=== PATIENT | male | born 1965 | race American Indian/Alaskan Native ===

== ENCOUNTER 2016-07-07 12:34 | Emergency (ER) | payer MEDICARE, MEDICAID ==
[2016-07-07 13:06] VITALS: BP 147/94; PULSE 72; RESP 18; TEMP 97.4; O2SAT 100
--- NOTE | 2016-07-07 13:14 | ED PDOC ---
HPI: General Adult Time Seen by Provider: 07/07/16 13:03 Chief Complaint (Provider): Sinus pain History Per: Patient History/Exam Limitations: no limitations Onset/Duration Of Symptoms: Days (4) Have you had recent travel within the past 21 days to any of the following countries: [place], [place], [place] or [place]?: No Current Symptoms Are (Timing): Still Present Severity: Moderate Additional History Per: Patient Additional Complaint(s): The pt is a 50yo male with no pertinent PMHx, presents to the ED for evaluation of sinus pain and congestion for the past 4 days. Pt additionally reports increased tearing in his eyes, more in left than right and thick congestion in his sinuses. Pt notes sinus pain with bending his neck forward and some pain in his eyes. He denies any fever, trauma, and offers no additional medical complaints. Past Medical History Reviewed: Historical Data, Nursing Documentation, Vital Signs Vital Signs: Last Vital Signs Temp 97.4 F L 07/07/16 13:04 Pulse 72 07/07/16 13:04 Resp 18 07/07/16 13:04 BP 147/94 H 07/07/16 13:04 Pulse Ox 100 07/07/16 13:17 - Medical History PMH: Asthma, HTN - Family History Family History: States: Unknown Family Hx - Immunization History Hx Tetanus Toxoid Vaccination: No Hx Influenza Vaccination: No Hx Pneumococcal Vaccination: No - Home Medications Home Medications: Ambulatory Orders Medication Instructions Recorded Guaifenesin/Pseudoephedrne HCl 1 ter PO Q12H PRN #10 ter 08/05/15 [Mucinex D 600 mg-60 mg] Lidocaine 2% Viscous 10 ml MM Q4H PRN #1 bottle 08/05/15 Amoxicillin/Clavulanate [Augmentin 1 tab PO BID #20 tab 07/07/16 500 MG-125 MG] Erythromycin 0.5% [Erythromycin 1 appl LEFTEYE QID #3 tube 07/07/16 0.5% Oint] Fluticasone Propionate [Flonase] 2 spr NS DAILY PRN #1 bottle 07/07/16 Pseudoephedrine [Sudafed Tab] 60 mg PO Q8 PRN #30 tab 07/07/16 - Allergies Allergies/Adverse Reactions: Allergies Allergy/AdvReac Type Severity Reaction Status Date / Time seafood Allergy Mild RASH Uncoded 08/05/15 08:22 Review of Systems ROS Statement: Except As Marked, All Systems Reviewed And Found Negative Constitutional: Negative for: Fever ENT: Positive for: Ear Discharge, Nose Congestion. Negative for: Other (trauma) Physical Exam - Reviewed Nursing Documentation Reviewed: Yes Vital Signs Reviewed: Yes - Physical Exam Appears: Positive for: Well, Non-toxic, No Acute Distress Head Exam: Positive for: ATRAUMATIC, NORMAL INSPECTION, NORMOCEPHALIC Skin: Positive for: Normal Color, Warm, Dry Eye Exam: Positive for: EOMI, PERRL. Negative for: Periorbital swelling, Conjunctival injection, Other (yellow discharge noted in left eye) ENT: Positive for: Sinus Pain/Drainage (bilateral), Nasal Congestion Neck: Positive for: Normal, Supple Neurologic/Psych: Positive for: Alert, Oriented - ECG O2 Sat by Pulse Oximetry: 100 (RA) Pulse Ox Interpretation: Normal Medical Decision Making Medical Decision Making: Time: 1310 Impression: Sinus pain Plan: -- based on clinical presentation, pt stable for d/c home. Will give Rx decongestants and advised to f/u with PCP in 1-2 days. Scribe Attestation: All records were documented by Matilde García, acting as a Scribe for VLADIMIR Gregory. Provider Scribe Attestation: All medical record entries made by the Scribe were at my direction and personally dictated by me. I have reviewed the chart and agree that the record accurately reflects my personal performance of the history, physical exam, medical decision making, and the department course for this patient. I have also personally directed, reviewed, and agree with the discharge instructions and disposition. Disposition - Clinical Impression Clinical Impression: Acute sinusitis - Patient ED Disposition Is Patient to be Admitted: No - Disposition Referrals: Carol Burns MD [Primary Care Provider] - Disposition: Routine/Home Disposition Time: 13:10 Condition: GOOD Prescriptions: Amoxicillin/Clavulanate [Augmentin 500 MG-125 MG] 1 tab PO BID #20 tab Erythromycin 0.5% [Erythromycin 0.5% Oint] 1 appl LEFTEYE QID #3 tube Fluticasone Propionate [Flonase] 2 spr NS DAILY PRN #1 bottle PRN Reason: Allergy Symptoms Pseudoephedrine [Sudafed Tab] 60 mg PO Q8 PRN #30 tab PRN Reason: congestion Instructions: Sinusitis (ED) Print Language: MALAY
== END 2016-07-07 13:25 | disposition home or self-care (01) ==
LOC: H.ER 12:34
DX: J01.90 Acute sinusitis, unspecified (principal); F17.210 Nicotine dependence, cigarettes, uncomplicated

== ENCOUNTER 2017-01-22 08:53 | Emergency (ER) | payer MEDICARE, MEDICAID ==
[2017-01-22 09:01] VITALS: BP 143/87; PULSE 98; RESP 20; TEMP 97.9; O2SAT 100; BMI 29.9
--- NOTE | 2017-01-22 09:23 | ED PDOC ---
HPI: CCC, URI, Sore Throat Time Seen by Provider: 01/22/17 09:13 Chief Complaint (Provider): Sore throat & nasal congestion History Per: Patient History/Exam Limitations: no limitations Onset/Duration Of Symptoms: Days (x1 week) Current Symptoms Are (Timing): Still Present Location Of Pain: Throat Associated Symptoms: Sore Throat, Nasal Congestion. denies: Fever, Cough, Other (SOB) Ear Symptoms: Bilateral: None Additional Complaint(s): Abelardo Lopez is a 51 year old male, with a past medical history of asthma, who presents to the emergency department complaining of sore throat and nasal congestion onset for 2 days. Patient denies any cough, fever, or shortness of breath. No further medical complaints. PMD: None provided. Past Medical History Reviewed: Historical Data, Nursing Documentation, Vital Signs Vital Signs: Last Vital Signs Temp 97.9 F 01/22/17 09:00 Pulse 98 H 01/22/17 09:00 Resp 20 01/22/17 09:00 BP 143/87 01/22/17 09:00 Pulse Ox 100 01/22/17 09:33 - Medical History PMH: Asthma, HTN - Family History Family History: States: Unknown Family Hx - Social History Current smoker - smoking cessation education provided: Yes (Heavy smoker >10 cigarettes daily) Alcohol: None Drugs: Cannabis - Immunization History Hx Tetanus Toxoid Vaccination: No Hx Influenza Vaccination: No Hx Pneumococcal Vaccination: No - Home Medications Home Medications: Ambulatory Orders Medication Instructions Recorded Guaifenesin/Pseudoephedrne HCl 1 ter PO Q12H PRN #10 ter 08/05/15 [Mucinex D 600 mg-60 mg] Lidocaine 2% Viscous 10 ml MM Q4H PRN #1 bottle 08/05/15 Amoxicillin/Clavulanate [Augmentin 1 tab PO BID #20 tab 07/07/16 500 MG-125 MG] Erythromycin 0.5% [Erythromycin 1 appl LEFTEYE QID #3 tube 07/07/16 0.5% Oint] Fluticasone Propionate [Flonase] 2 spr NS DAILY PRN #1 bottle 07/07/16 Pseudoephedrine [Sudafed Tab] 60 mg PO Q8 PRN #30 tab 07/07/16 Azithromycin [Zithromax] 250 mg PO DAILY #6 tab 01/22/17 Fluticasone Propionate [Flonase] 1 actuation NS DAILY #1 bottle 01/22/17 - Allergies Allergies/Adverse Reactions: Allergies Allergy/AdvReac Type Severity Reaction Status Date / Time seafood Allergy Mild RASH Uncoded 08/05/15 08:22 Review of Systems Constitutional: Negative for: Fever ENT: Positive for: Nose Congestion, Throat Pain Respiratory: Negative for: Cough, Shortness of Breath Physical Exam - Reviewed Nursing Documentation Reviewed: Yes Vital Signs Reviewed: Yes - Physical Exam Appears: Positive for: Well, Non-toxic, No Acute Distress Head Exam: Positive for: ATRAUMATIC, NORMAL INSPECTION, NORMOCEPHALIC Skin: Positive for: Normal Color, Warm, Dry Eye Exam: Positive for: EOMI, Normal appearance, PERRL ENT: Negative for: Sinus Pain/Drainage (sinus tenderness), Pharyngeal Erythema ( throat erythematous), Tonsillar Exudate Neck: Positive for: Normal, Painless ROM, Supple Cardiovascular/Chest: Positive for: Regular Rate, Rhythm. Negative for: Murmur Respiratory: Positive for: Normal Breath Sounds (clear bilateral). Negative for : Respiratory Distress Gastrointestinal/Abdominal: Positive for: Normal Exam, Bowel Sounds, Soft. Negative for: Tenderness, Guarding, Rebound Extremity: Positive for: Normal ROM. Negative for: Deformity, Swelling Neurologic/Psych: Positive for: Alert, Oriented - ECG O2 Sat by Pulse Oximetry: 100 (RA) Pulse Ox Interpretation: Normal Medical Decision Making Medical Decision Making: Initial Plan: --Rapid Strep Group A Antigen --reevaluation Scribe Attestation: Documented by Jatinder Tay, acting as a scribe for Igor Zapata MD Provider Scribe Attestation: All medical record entries made by the Scribe were at my direction and personally dictated by me. I have reviewed the chart and agree that the record accurately reflects my personal performance of the history, physical exam, medical decision making, and the department course for this patient. I have also personally directed, reviewed, and agree with the discharge instructions and disposition. Disposition - Clinical Impression Clinical Impression: Pharyngitis - Patient ED Disposition Is Patient to be Admitted: No - Disposition Referrals: [facility] [Outside] Disposition: Routine/Home Disposition Time: 09:35 Condition: FAIR Prescriptions: Azithromycin [Zithromax] 250 mg PO DAILY #6 tab Fluticasone Propionate [Flonase] 1 actuation NS DAILY #1 bottle Instructions: Pharyngitis (ED) Forms: [employer] (Greenlandic)
== END 2017-01-22 09:57 | disposition home or self-care (01) ==
LOC: H.ER 08:53
DX: J02.9 Acute pharyngitis, unspecified (principal); I10 Essential (primary) hypertension; J45.909 Unspecified asthma, uncomplicated

== ENCOUNTER 2017-08-30 08:44 | Emergency (ER) | payer MEDICARE, MEDICAID ==
[2017-08-30 08:52] VITALS: TEMP 97.6; O2SAT 98
[2017-08-30 08:53] VITALS: BMI 28.1
--- NOTE | 2017-08-30 09:04 | ED PDOC ---
HPI: General Adult Time Seen by Provider: 08/30/17 08:55 Chief Complaint (Provider): ear pain History Per: Patient History/Exam Limitations: no limitations Onset/Duration Of Symptoms: Days (Saturday) Current Symptoms Are (Timing): Still Present Additional Complaint(s): Pt. with right ear pain that is going up and down. Has mild right throat pain but able to swallow. No numbness, tingles, weakness, dyspnea, numbness, tingles , headaches, dizziness. Pt. was in water rides during father's day and thinks that might have caused the problem. Gets ear infections frequently and some pencillin antibiotic fixes it. Past Medical History Reviewed: Nursing Documentation, Vital Signs Vital Signs: Last Vital Signs Temp 97.6 F 08/30/17 08:52 Pulse 95 H 08/30/17 08:52 Resp BP 158/105 H 08/30/17 08:52 Pulse Ox 98 08/30/17 08:52 - Medical History PMH: Asthma, HTN - Surgical History Surgical History: No Surg Hx - Family History Family History: States: Unknown Family Hx - Living Arrangements Living Arrangements: With Family - Social History Current smoker - smoking cessation education provided: No - Immunization History Hx Tetanus Toxoid Vaccination: No Hx Influenza Vaccination: No Hx Pneumococcal Vaccination: No - Home Medications Home Medications: Ambulatory Orders Medication Instructions Recorded Guaifenesin/Pseudoephedrne HCl 1 ter PO Q12H PRN #10 ter 08/05/15 [Mucinex D 600 mg-60 mg] Lidocaine 2% Viscous 10 ml MM Q4H PRN #1 bottle 08/05/15 Amoxicillin/Clavulanate [Augmentin 1 tab PO BID #20 tab 07/07/16 500 MG-125 MG] Erythromycin 0.5% [Erythromycin 1 appl LEFTEYE QID #3 tube 07/07/16 0.5% Oint] Fluticasone Propionate [Flonase] 2 spr NS DAILY PRN #1 bottle 07/07/16 Pseudoephedrine [Sudafed Tab] 60 mg PO Q8 PRN #30 tab 07/07/16 Azithromycin [Zithromax] 250 mg PO DAILY #6 tab 01/22/17 Fluticasone Propionate [Flonase] 1 actuation NS DAILY #1 bottle 01/22/17 Amoxicillin [Amoxil 500 mg Cap] 500 mg PO BID 7 Days cap 06/22/18 - Allergies Allergies/Adverse Reactions: Allergies Allergy/AdvReac Type Severity Reaction Status Date / Time seafood Allergy Mild RASH Uncoded 08/30/17 08:56 Review of Systems Constitutional: Negative for: Fever, Weakness Eyes: Negative for: Vision Change ENT: Positive for: Ear Pain, Nose Congestion, Throat Pain. Negative for: Nose Discharge, Mouth Pain Cardiovascular: Negative for: Chest Pain Respiratory: Negative for: Cough, Shortness of Breath Gastrointestinal: Negative for: Nausea, Vomiting, Abdominal Pain Musculoskeletal: Negative for: Neck Pain, Shoulder Pain Skin: Negative for: Rash Neurological: Negative for: Weakness Physical Exam - Reviewed Nursing Documentation Reviewed: Yes Vital Signs Reviewed: Yes - Physical Exam Appears: Positive for: Non-toxic, No Acute Distress Head Exam: Positive for: ATRAUMATIC, NORMAL INSPECTION, NORMOCEPHALIC Eye Exam: Positive for: EOMI, Normal appearance, PERRL ENT: Positive for: Normal ENT Inspection, TM Is/Are (clear b/l), Nasal Congestion. Negative for: Pharyngeal Erythema, Tonsillar Exudate Neck: Positive for: Normal, Painless ROM Cardiovascular/Chest: Positive for: Regular Rate, Rhythm Respiratory: Positive for: CNT, Normal Breath Sounds Back: Positive for: Normal Inspection. Negative for: L CVA Tenderness, R CVA Tenderness Neurologic/Psych: Positive for: Alert, Oriented - ECG O2 Sat by Pulse Oximetry: 98 Pulse Ox Interpretation: Normal - Progress ED Course And Treament: 907: Stable. Aware of bp being elevated. Will fu with pcp. Demanding antibiotics for ear infection. Does not appear red at this time. Will rx amox and advised to take if hurting in next 48hrs. AAOx3. Disposition - Clinical Impression Clinical Impression: Ear pain, High blood pressure - Patient ED Disposition Is Patient to be Admitted: No Counseled Patient/Family Regarding: Diagnosis, Need For Followup, Rx Given - Disposition Referrals: [facility] [Outside] - 09/02/17 Disposition: Routine/Home Disposition Time: 09:09 Condition: STABLE Additional Instructions: Return if not better in 3 days. Take antibiotics if pain persists after 48hrs. Prescriptions: Amoxicillin [Amoxil 500 mg Cap] 500 mg PO BID 7 Days cap Instructions: Ear Infections (Otitis Media), High Blood Pressure in Adults
[2017-08-30 09:30] VITALS: BP 160/94; PULSE 74; RESP 16
== END 2017-08-30 09:31 | disposition home or self-care (01) ==
LOC: H.ER 08:44
DX: H92.01 Otalgia, right ear (principal); I10 Essential (primary) hypertension; J45.909 Unspecified asthma, uncomplicated
CPT/HCPCS: 96372; 99282; J1885

== ENCOUNTER 2018-04-09 14:48 | Emergency (ER) | payer MEDICARE, MEDICAID ==
[2018-04-09 14:48] VITALS: BMI 28.1
[2018-04-09 15:00] VITALS: TEMP 97.5; O2SAT 98
[2018-04-09] MEDS ORDERED: Amoxicillin-Clav 875-125 mg Tab PO STA (15:16)
--- NOTE | 2018-04-09 15:22 | ED PDOC ---
HPI: Influenza Time Seen by Provider: 04/09/18 15:03 Chief Complaint: Cough, Cold, Congestion Chief Complaint (Provider): Sinus Pressure/Headache History Per: Patient Exam Limitations: no limitations Have you had recent travel within the past 21 days to any of: No Onset/Duration Of Symptoms: Days (x2) Symptoms include: headache, nasal congestion. denies: fever Additional complaint(s):: Patient is a 52 year old male with a past medical history of asthma, sinus infections, and hypertension who presents to the ED for evaluation of a sinus pressure/headache ongoing for the past two days. Patient complains of pain and pressure around his eyes, forehead, and nose. Patient claims to have taken over the counter sinus medication with no relief. Patient denies recent travel, fever, cough, ear pain, throat pain, N/V/D, abdominal pain, and chest pain. Of note, patient smokes about a half a pack a day. No other complaints. PCP: None Provided Past Medical History Reviewed: Historical Data, Nursing Documentation, Vital Signs Vital Signs: Last Vital Signs Temp 97.5 F L 04/09/18 14:56 Pulse 100 H 04/09/18 14:56 Resp 18 04/09/18 14:56 BP 149/98 H 04/09/18 14:56 Pulse Ox 98 04/09/18 14:56 - Medical History PMH: Asthma, HTN Other PMH: sinus infections - Surgical History Other surgeries: right wrist cyst removal surgery; right shoulder surgery - Family History Family History: States: Unknown Family Hx - Social History Current smoker - smoking cessation education provided: Yes (half a pack a day) - Home Medications Home Medications: Ambulatory Orders Medication Instructions Recorded Guaifenesin/Pseudoephedrne HCl 1 ter PO Q12H PRN #10 ter 08/05/15 [Mucinex D 600 mg-60 mg] RX: Lidocaine 2% Viscous 10 ml MM Q4H PRN #1 bottle 08/05/15 Amoxicillin/Clavulanate [Augmentin 1 tab PO BID #20 tab 07/07/16 500 MG-125 MG] Erythromycin 0.5% [Erythromycin 1 appl LEFTEYE QID #3 tube 07/07/16 0.5% Oint] Fluticasone Propionate [Flonase] 2 spr NS DAILY PRN #1 bottle 07/07/16 RX: Pseudoephedrine [Sudafed Tab] 60 mg PO Q8 PRN #30 tab 07/07/16 Azithromycin [Zithromax] 250 mg PO DAILY #6 tab 01/22/17 Fluticasone Propionate [Flonase] 1 actuation NS DAILY #1 bottle 01/22/17 RX: Amoxicillin [Amoxil 500 mg Cap] 500 mg PO BID 7 Days cap 08/30/17 Cyclobenzaprine [Cyclobenzaprine 10 mg PO Q8H #20 tab 09/02/17 HCl] Amoxicillin/Clavulanate [Augmentin 1 tab PO BID #14 tab 04/09/18 875 MG-125 MG] Fluticasone Nasal [Flonase] 1 actuation NS DAILY #1 unit 04/09/18 RX: Naproxen Sodium/Pseudoephedrin 1 each PO BID #20 tab 04/09/18 [Aleve Cold and Sinus Caplet] - Allergies Allergies/Adverse Reactions: Allergies Allergy/AdvReac Type Severity Reaction Status Date / Time seafood Allergy Mild RASH Uncoded 04/09/18 14:56 Review of Systems ROS Statement: Except As Marked, All Systems Reviewed And Found Negative Constitutional: Positive for: Other (Sinus pain and pressure). Negative for: Fever ENT: Negative for: Ear Pain, Throat Pain Cardiovascular: Negative for: Chest Pain Respiratory: Negative for: Cough Gastrointestinal: Negative for: Nausea, Vomiting, Abdominal Pain, Diarrhea Physical Exam - Reviewed Nursing Documentation Reviewed: Yes Vital Signs Reviewed: Yes - Physical Exam Comments: GENERAL APPEARANCE: Patient is awake, alert, oriented x 3, in no acute distress. Resting comfortably. SKIN: Warm, dry; (-) cyanosis. EYES: (-) periorbital edema or erythema ENMT: (+) Bilateral maxillary and frontal sinus tenderness. TMs: (-) bulging (-) erythema bilaterally. Pharynx: uvula midline (-) erythema (-) exudate (+) post nasal drip with green mucus. Mucous membranes moist. NECK: Supple, FROM (-) tenderness, (-) stiffness, (-) lymphadenopathy. CHEST AND RESPIRATORY: (-) rales, (-) rhonchi, (-) wheezes; breath sounds equal bilaterally. Respirations even and nonlabored. HEART AND CARDIOVASCULAR: (-) irregularity NEURO AND PSYCH: Mental status as above; (-) focal findings. Gait: steady. Speech: clear. (-) facial asymmetry (-) aphasia Medical Decision Making Medical Decision Making: Time: 1514 Impression: sinusitis and sinus headache Plan: Augmentin 875 mg 1 tab PO Toradol 30 mg IM Re-evaluation Smoking cessation advised 1545 Repeat BP: 142/81 Repeat HR: 88 On re-evaluation, patient reports improvement of symptoms. On exam, patient remains AAOx3, in no acute distress. Vitals stable. Lab/Diagnostic results d/w the patient in great detail. Diagnosis of acute sinusitis, sinus headache d/w the patient. Based on history, exam and diagnostic results, plan will be for outpatient follow up with clinic/ENT. Patient instructed to follow-up with pmd / referral provided / the clinic in 1- 2 days without fail. Advised to take medication as prescribed. Return to the emergency room at any time for any new or worsening symptoms. Patient states he fully agrees with and understands discharge instructions. States that he agrees with the plan and disposition. Verbalized and repeated discharge instructions and plan. I have given the patient opportunity to ask any additional questions. Scribe Attestation: Documented by Nelson Conn, acting as a scribe for VLADIMIR Pretty. Provider Scribe Attestation: All medical record entries made by the Scribe were at my direction and personally dictated by me. I have reviewed the chart and agree that the record accurately reflects my personal performance of the history, physical exam, medical decision making, and the department course for this patient. I have also personally directed, reviewed, and agree with the discharge instructions and disposition. - ECG O2 Sat by Pulse Oximetry: 98 (RA) Pulse Ox Interpretation: Normal Disposition - Clinical Impression Clinical Impression: Sinusitis, Tobacco abuse, Sinus headache - Patient ED Disposition Is Patient to be Admitted: No Counseled Patient/Family Regarding: Studies Performed, Diagnosis, Need For Followup, Rx Given, Smoking Cessation - Disposition Referrals: [facility] [Outside] Sam Lopez MD [Staff Provider] - Disposition: Routine/Home Disposition Time: 15:45 Condition: STABLE Additional Instructions: The emergency medical care you received today was directed at your acute symptom s. If you were prescribed any medication, please fill it and take as directed. It may take several days for your symptoms to resolve. Return to the Emergency Department if your symptoms worsen, do not improve, or if you have any other problems. Please contact your doctor in 2 days for re-evaluation and follow up / or call one of the physicians/clinics you have been referred to that are listed on the Patient Visit Information form that is included in your discharge packet. Bring any paperwork you were given at discharge with you along with any medications you are taking to your follow up visit. Our treatment cannot replace ongoing medical care by a primary care provider (PCP) outside of the emergency department. Prescriptions: Amoxicillin/Clavulanate [Augmentin 875 MG-125 MG] 1 tab PO BID #14 tab Fluticasone Nasal [Flonase] 1 actuation NS DAILY #1 unit RX: Naproxen Sodium/Pseudoephedrin [Aleve Cold and Sinus Caplet] 1 each PO BID #20 tab Instructions: Sinusitis in Adults, Quitting Smoking for Older Adults, Smoking: Not Just Harmful to Your Lungs and Heart, Sinus Headache (DC) Forms: [employer] (Tunisian) Print Language: YORUBA - POA Present On Arrival: None
[2018-04-09] MEDS ORDERED: Amoxicillin-Clav 875-125 mg Tab PO ONE (15:29)
[2018-04-09 15:51] VITALS: BP 142/81; PULSE 88; RESP 16
== END 2018-04-09 16:18 | disposition home or self-care (01) ==
LOC: H.ER 14:48
DX: J32.9 Chronic sinusitis, unspecified (principal); R51 Headache; F17.210 Nicotine dependence, cigarettes, uncomplicated; I10 Essential (primary) hypertension
CPT/HCPCS: 96372; 99282; J1885